=== PATIENT | male | born 1990 | race Caucasian/White ===

== ENCOUNTER 2022-05-02 12:19 | Emergency (ER) | payer BC, SELFPAY ==
--- NOTE | ~2022-05-02 | US_ITS ---
EXAMINATION: US SCROTUM CLINICAL INFORMATION: Left testicular pain and swelling.. COMPARISON: None TECHNIQUE: A sonogram of the scrotum was performed assessing wilkins-scale appearance and color Doppler flow. Spectral Doppler analysis of the arterial and venous flow were performed in the testes bilaterally. FINDINGS: RIGHT: Right testicle measures 5.5 x 2.2 x 3.2 cm, volume 20.9 mL. No focal testicular parenchymal lesions are visualized. Spectral Doppler analysis of the arterial and venous flow is normal in the right testis. Right epididymal head is normal in size. There is a small right hydrocele. no varicocele is seen. Right epididymal Doppler flow is normal. LEFT: Left testicle measures 5.6 x 2.4 x 3.8 cm, volume 26.5 mL. No focal testicular parenchymal lesions are visualized. Spectral Doppler analysis of the arterial and venous flow is increased in the left testis. Left epididymal head is normal in size. There is a small left hydrocele visualized. No Varicocele is seen. Left epididymal Doppler flow is normal. US/US scrotum IMPRESSION: There is increased left testicular Doppler flow suggestive of orchitis. No evidence of testicular torsion. Small bilateral hydroceles.. Unremarkable right testes and right epididymis.
--- NOTE | ~2022-05-02 | US_ITS ---
EXAMINATION: US SCROTUM CLINICAL INFORMATION: Left testicular pain and swelling.. COMPARISON: None TECHNIQUE: A sonogram of the scrotum was performed assessing wilkins-scale appearance and color Doppler flow. Spectral Doppler analysis of the arterial and venous flow were performed in the testes bilaterally. FINDINGS: RIGHT: Right testicle measures 5.5 x 2.2 x 3.2 cm, volume 20.9 mL. No focal testicular parenchymal lesions are visualized. Spectral Doppler analysis of the arterial and venous flow is normal in the right testis. Right epididymal head is normal in size. There is a small right hydrocele. no varicocele is seen. Right epididymal Doppler flow is normal. LEFT: Left testicle measures 5.6 x 2.4 x 3.8 cm, volume 26.5 mL. No focal testicular parenchymal lesions are visualized. Spectral Doppler analysis of the arterial and venous flow is increased in the left testis. Left epididymal head is normal in size. There is a small left hydrocele visualized. No Varicocele is seen. Left epididymal Doppler flow is normal. US/US scrotum doppler IMPRESSION: There is increased left testicular Doppler flow suggestive of orchitis. No evidence of testicular torsion. Small bilateral hydroceles.. Unremarkable right testes and right epididymis.
[2022-05-02 12:43] VITALS: BP 126/78; PULSE 100; RESP 18; TEMP 36.5; O2SAT 96; BMI 32.3
--- NOTE | 2022-05-02 17:53 | ED.MALEGU ---
HPI - Male Genitourinary General Chief complaint: Urogenital-Male Stated complaint: Genital swelling/pain Time Seen by Provider: 05/02/22 13:28 Source: patient Mode of arrival: ambulatory Limitations: no limitations History of Present Illness HPI Narrative: 31-year-old male healthy presents to ED for left testicular pain since Sunday. Patient states no penile discharge, penile lesions, hematuria nausea, or vomiting. Patient states last unprotected sexual activtiy was with last girlfriend last month. Patient denies any history of STDs. Related Data Previous Rx's Medication Instructions Recorded doxycycline hyclate 100 mg capsule 100 mg PO BID 7 days #14 caps 05/02/22 naproxen 500 mg tablet 500 mg PO BID PRN pain 10 days #20 05/02/22 tabs Allergies Allergy/AdvReac Type Severity Reaction Status Date / Time No Known Allergies Allergy Verified 05/02/22 12:42 [No Known Allergies*] Review of Systems Review of Systems: left testicular pain Yes all other systems are reviewed and are negative [facility] Social History Social History Advance Directives: No Advance Directives Information Provided: Yes Physical Exam Vital Signs: Vital Signs: Last Vital Signs Temp 97.7 F 05/02/22 12:43 Pulse 100 05/02/22 12:43 Resp 18 05/02/22 12:43 BP 126/78 05/02/22 12:43 Pulse Ox 96 05/02/22 12:43 BMI result Body Mass Index 32.3 Const: General: cooperative, healthy appearing, comfortable, no acute distress, well developed, alert, awake and Physically active Orientation/consciousness: oriented to time and patient oriented x3 HEENT: Head: Yes normal to inspection, Yes No palpable skull fracture present, Yes normocephalic, Yes atraumatic and No abrasion Neck: Neck: Yes normal visual inspection, Yes full ROM, Yes no lymphadenopathy, Yes no meningeal signs, Yes trachea midline, Yes supple, No anterior neck swelling and No tender Chest: Chest palpation & inspection: normal inspection of the chest and normal palpation of entire chest wall Resp: Effort & Inspection: normal respiratory effort and able to speak in complete sentences Auscultation: clear to auscultation bilaterally Cardio: Jugular venous distension: no JVD Heart sounds: S1 normal heart sound present and S2 normal heart sound present GI: Inspection: Yes normal to inspection and No abdominal wall ecchymosis Palpation (GI): Soft to palpation, not firm, nontender, no guarding and not rigid : General: No CVA tenderness and Yes no CVA tenderness Male General Exam: Yes normal external exam Penis: normal penis and circumcised Meatus: meatus normal Scrotum: scrotum normal Testes: testicular tenderness on the left Back/Spine/Pelvis: Back: no CVA tenderness, No CVA tenderness and No back tenderness Skin: General skin exam: no rashes or lesions noted and elasticity normal Neuro: General: oriented to time, patient oriented x3, gait normal, no meningeal signs and CN's II-XI intact bilaterally Cranial nerves: Yes CN's II-XII intact bilaterally Extrem: General: Yes normal to inspection and Yes full ROM Psych: Appearance: grossly normal, well kempt and not disheveled Course Course Course Narrative: UA, chlamydia gonorrhea ordered, physical ultrasound ordered. Reevaluation(s) Reevaluation #1: Testicular ultrasound negative for torsion but does shows left orchitis. Mom's blood test ordered. Patient states vaccinating with mom's knees to rubella vaccine. Patient discharged with doxy and treated with ceftriaxone and informed to follow up primary care provider. History physical exam negative for signs of parotitis Time: 18:15 Reevaluation #2: OB: 1990 Acct:[id number] Age/Sex: 31 / M ADM Date: 05/02/22 Loc: .ED Attending Dr: Ordering Physician: Pat Smith Date of Service: 05/02/22 Procedure(s): US scrotum doppler Accession Number(s): [id number] cc: Pat Smith~ EXAMINATION: US SCROTUM CLINICAL INFORMATION: Left testicular pain and swelling.. COMPARISON: None TECHNIQUE: A sonogram of the scrotum was performed assessing wilkins-scale appearance and color Doppler flow. Spectral Doppler analysis of the arterial and venous flow were performed in the testes bilaterally. FINDINGS: RIGHT: Right testicle measures 5.5 x 2.2 x 3.2? cm, volume 20.9 mL. No focal testicular parenchymal lesions are visualized. Spectral Doppler analysis of the arterial and venous flow is normal in the right testis. Right epididymal head is normal in size. There is a small right hydrocele. no varicocele is seen. Right epididymal Doppler flow is normal. LEFT: Left testicle measures 5.6 x 2.4 x 3.8 cm, volume 26.5 mL. No focal testicular parenchymal lesions are visualized. Spectral Doppler analysis of the arterial and venous flow is increased in the left testis. Left epididymal head is normal in size. There is a small left hydrocele visualized. No Varicocele is seen. Left epididymal Doppler flow is normal. US/US scrotum doppler IMPRESSION: There is increased left testicular Doppler flow suggestive of orchitis. No evidence of testicular torsion. ? Small bilateral hydroceles.. ? Unremarkable right testes and right epididymis. Dictated By: Alan Santiago MD Signed By: <Electronically signed by Alan Santiago MD in [place]> 05/02/22 1528 MDM - Male Genitourinary MDM Narrative Medical decision making narrative: Orchitis Lab Data Labs: Lab Results 05/02/22 Range/Units 17:46 Urine Color YELLOW Urine Appearance CLEAR Urine pH 6.0 (5.0-8.0) Ur Specific Whitefish >= 1.030 H (1.005-1.025) Urine Protein NEG (NEG-TRACE) MG/DL Urine Glucose (UA) NEG (NEG) MG/DL Urine Ketones NEG (NEG) MG/DL Urine Blood NEG (NEG) Urine Nitrite NEG (NEG) Ur Leukocyte Esterase NEG (NEG) Discharge Plan Discharge Clinical Impression: Orchitis Patient Disposition: Home, Self-Care Instructions: Orchitis (ED), Scrotal Pain (ED) Additional Instructions: You will be called with the results of your mumps, chlamydia and gonorrhea results if positive. It will take about 4 days for the results to come back. Return to ED for any penile discharge, penile lesions, increased swelling of the testicles, testicular pain, abdominal pain, nausea, vomiting, flank pain, fever, chills, hematuria, or any other concerning symptoms. Please follow-up with your primary care provider. Prescriptions: New doxycycline hyclate 100 mg capsule 100 mg PO BID 7 Days Qty: 14 0RF naproxen 500 mg tablet 500 mg PO BID PRN (Reason: pain) 10 Days Qty: 20 0RF Referrals: Bao Renteria MD [Physician] - ([facility]ft Orchitis) Stand Alone Forms: Work/School Release Interventions: ED Discharge Assessment Last Done: 05/02/22 18:32 Discharge Date/Time: 05/02/22 18:32 Print Language: [place]
[2022-05-02 18:00] LABS: Appearance Urine CLEAR; Color Urine YELLOW; Glucose Urine UA NEG (NEG); Leukocyte Esterase Urine NEG (NEG); Nitrite Urine NEG (NEG); Specific Gravity - Urine >= 1.030 (1.005-1.025); Urine Blood NEG (NEG); Urine Ketones NEG (NEG); Urine Protein NEG (NEG-TRACE)
[2022-05-02] MEDS: cefTRIAXone sodium 500 MG, Lidocaine HCl 1 % MPF 1 ML IM (18:27)
[2022-05-03 06:09] LABS: CT PCR NOT DETECTED (Not Detect.); NG PCR NOT DETECTED (Not Detect.)
== END 2022-05-02 18:32 | disposition home or self-care (01) ==
PROVIDERS: Physician Assistant; Emergency Provider Internal Medicine; PCP Student in an Organized Health Care Education/Training Program
DX: N45.2 Orchitis (principal); N50.812 Left testicular pain
CPT/HCPCS: 36415; 76870; 81003; 86735; 87491; 87591; 93975; 96372; 99282; 99284; J0696